=== PATIENT | male | born 1950 | race Caucasian/White ===

== ENCOUNTER → 2017-06-23 | Outpatient (CLI) | payer MEDICARE ==
[~2017-06-23] MED LIST: HYDR-3720 PO
--- NOTE | 2017-06-23 14:57 | Diagnostic Imaging Report ---
INDICATION: Low back pain. Hip pain. COMPARISON: None. FINDINGS: Two radiographic views of the left hip were obtained and demonstrate severe degenerative changes. There is severe joint space narrowing with sclerotic transformation of the articular surfaces. Subchondral cystic changes also noted. No acute fracture or dislocation is identified. Joint spaces otherwise intact. Included portions of the left hemipelvis show no additional acute abnormalities. No unexpected radiopaque foreign bodies are seen. IMPRESSION: 1. No acute fracture or dislocation of the left hip. 2. Severe degenerative changes of the left hip. Dictated by: Dictated on workstation # [id number]
--- NOTE | 2017-06-23 16:22 | Diagnostic Imaging Report ---
INDICATION: Low back pain. Three views were obtained. FINDINGS: The alignment of the lumbar spine is normal. Vertebral body heights are well-maintained. There is no spondylolysis or spondylolisthesis. No fractures are identified. There is multilevel degenerative disc disease and some mild lower lumbar hypertrophic degenerative facet disease. IMPRESSION: Diffuse lumbar spondylosis with multilevel degenerative disc disease and lower lumbar hypertrophic degenerative facet disease. Dictated by: Dictated on workstation # [id number]
== END ==
LOC: RAD 14:18
PROVIDERS: ATTEND Nurse Practitioner Family
DX: M16.12 Unilateral primary osteoarthritis, left hip (principal); M54.5 Low back pain
CPT/HCPCS: 72100; 73502

== ENCOUNTER → 2018-01-09 | Outpatient (CLI) | payer MEDICARE ==
--- NOTE | 2018-01-09 12:38 | Diagnostic Imaging Report ---
INDICATION: Right-sided flank pain. Noncontrast CT of the abdomen and pelvis was performed. There is no previous study for comparison. The visualized portions of the lung bases are clear. There are no pleural fluid collections. There is no free intraperitoneal air. The liver shows a small cyst in the left lobe. Gallbladder is unremarkable. The spleen, adrenals, and pancreas are normal in appearance. The left kidney shows a small nonocclusive stone in the lower pole and a small nonocclusive stone in the mid pole. There is no hydronephrosis on the left side or ureteral stone. On the right side, there is perinephric edema and hydronephrosis. There is a small intrarenal calculus in the lower pole of the right kidney. There is hydroureter on the right side down to the level of a stone in the mid ureter at the approximate level of L5. This stone measures around 3 mm in diameter. There are no stones seen below this point. There is no retroperitoneal adenopathy. There is no ascites or abnormal fluid collection. Visualized bowel loops show no obstruction or ileus. There is no pelvic adenopathy or mass. Patient has a right hip prosthesis. There is advanced degenerative change of the left hip. IMPRESSION: On the right side, there is perinephric edema and hydronephrosis, down to the level of a 3 mm stone in the right mid ureter at the approximate level of L5. There are small intrarenal calculi in both kidneys. There is no other acute finding. There is a right hip prosthesis. There is advanced osteoarthritic change of the left hip. There is diffuse degenerative change of the lumbar spine. Report faxed to Dr. Mcdermott's office at 12:30 p.m. 01/09/2018/patti Message left on Dr. Mcdermott's cell phone at 12:37 p.m. 01/09/2018/cb Dictated by: Dictated on workstation # [id number]
== END ==
LOC: RAD 11:28
PROVIDERS: ATTEND Internal Medicine
DX: N13.2 Hydronephrosis with renal and ureteral calculous obstruction (principal); M16.12 Unilateral primary osteoarthritis, left hip; M47.816 Spondylosis without myelopathy or radiculopathy, lumbar region; Z96.641 Presence of right artificial hip joint
CPT/HCPCS: 74176

== ENCOUNTER → 2018-02-27 | Outpatient (CLI) | payer MEDICARE ==
--- NOTE | 2018-02-27 14:15 | Diagnostic Imaging Report ---
PROCEDURE: CT abdomen and pelvis without contrast. TECHNIQUE: Multiple contiguous axial images were obtained through the abdomen and pelvis without the use of intravenous contrast. INDICATION: Kidney stones. COMPARISON: Comparison is made with prior study from 01/09/2018. FINDINGS: The lung bases are clear. A small cyst in the left lobe of the liver is stable. No new liver mass is identified. The gallbladder is unremarkable. Pancreas and spleen are unremarkable. No adrenal mass is detected. The right kidney contains a tiny nonobstructing calculus in the lower pole. There are two nonobstructing calculi in the left kidney. No ureteral calculi are detected. The bladder is unremarkable. The small and large bowel loops are normal caliber. There is no ascites. Large amount of artifact in the pelvis is noted from patient's right hip prosthesis. Severe osteoarthritic changes of the left hip are noted. IMPRESSION: 1. Tiny bilateral nonobstructing nephrolithiasis. 2. No other significant abnormality is detected. Dictated by: Dictated on workstation # [id number]
--- NOTE | 2018-02-27 15:47 | Diagnostic Imaging Report ---
INDICATION: Renal and ureteral stones. TIME OF EXAM: 02:11 p.m. FINDINGS: A small calcific density overlies the mid left renal shadow as well as the lower pole renal shadow consistent with calculi. No definite calcific densities are seen overlying the right renal shadow. No calculi along the expected distribution of the ureters are seen. Postop changes to the right hip are noted. Severe degenerative changes of the left hip are noted with joint space narrowing, sclerosis, and subchondral cyst formation. IMPRESSION: Left renal calculi. No other significant abnormality is seen. Dictated by: Dictated on workstation # [id number]
== END ==
LOC: RAD 13:35
PROVIDERS: ATTEND Urology
DX: N20.0 Calculus of kidney (principal); N20.1 Calculus of ureter
CPT/HCPCS: 74018; 74176